=== PATIENT | female | born 1995 | race Two or more races ===

== ENCOUNTER 2022-09-19 09:43 | Emergency (ER) | payer OTHER ==
[~2022-09-19] VITALS: Ht 162.6 cm; Wt 84.1 kg
[2022-09-19 10:37] VITALS: BP 140/90
[2022-09-19] MEDS ORDERED: ACETAMINOPHEN 500 MG TAB PO ONE (11:30)
[2022-09-19] MEDS ORDERED: KETOROLAC TROMETH 60MG/2ML VIAL IM ONE (12:30)
== END 2022-09-19 13:33 | disposition home or self-care (01) ==
LOC: ER 09:43
DX: J02.9 Acute pharyngitis, unspecified (principal)
CPT/HCPCS: 87070; 87880; 96372; 99283; J1885